=== PATIENT | male | born 1980 | race Caucasian/White ===

== ENCOUNTER 2016-11-26 14:35 | Emergency (ER) | payer SELFPAY ==
[~2016-11-26] VITALS: Ht 175.3 cm; Wt 79.4 kg
[2016-11-26] MEDS ORDERED: AMOX-358 PO (14:53)
[2016-11-26] MEDS ORDERED: LIDO30JE10 MM (14:53)
[2016-11-26] MEDS ORDERED: HYDR-757 PO (14:53)
--- NOTE | 2016-11-26 14:53 | ED EENT ---
History of Present Illness General Chief Complaint: Dental Problems/Pain Stated Complaint: BROKEN TOOTH/PAIN Source: patient Exam Limitations: no limitations History of Present Illness Time seen by provider: 14:49 Initial Comments To ER with a broken right lower molar. States that he cracked several weeks ago but finally broke off this morning. He notices some swelling. No fevers or chills. He resides in [facility] and states that he will have a dentist remove the tooth. Timing/Duration: gradual Severity: moderate Location: dental Associated Symptoms: facial pain/swelling Review of Systems Constitutional: see HPI Eyes: No Symptoms Reported Ears: No Symptoms Reported Nose: no symptoms reported Mouth: see HPI Throat: no symptoms reported Respiratory: no symptoms reported Cardiovascular: no symptoms reported Musculoskeletal: no symptoms reported Past Qaykark-Gasffo-Kvtpsp Hx Patient Social History Alcohol Use: Denies Use Recreational Drug Use: No Smoking Status: Current Everyday Smoker Type Used: Cigarettes Recent Foreign Travel: No Contact w/Someone Who Travel: No Physical Exam General Appearance: WD/WN, no apparent distress Eyes: bilateral eye EOMI, bilateral eye PERRL, bilateral eye normal inspection Ears: bilateral ear TM normal, bilateral ear auricle normal, bilateral ear canal normal Mouth/Throat: normal mouth inspection, pharynx normal, other (dental fracture with some swelling to the lingual surface of the right lower molar. I recommended local anesthesia, incision and drainage but the patient declines stating that he will follow up in [facility] to have this removed.) Neck: non-tender Respiratory: normal breath sounds, no respiratory distress, no accessory muscle use Gastrointestinal: normal bowel sounds, non tender, soft Neurologic/Psychiatric: alert, normal mood/affect, oriented x 3 Skin: normal color, warm/dry Departure Impression Impression: Primary Impression: Dental abscess Disposition: 01 HOME, SELF-CARE Condition: Stable Departure-Patient Inst. Decision time for Depature: 14:51 Referrals: NO,LOCAL PHYSICIAN (PCP/Family) Primary Care Physician Patient Instructions: Dental Pain (DC) Add. Discharge Instructions: 1. You must follow-up with your dentist this week 2. Antibiotics as directed 3. Return to ER for any worsening All discharge instructions reviewed with patient and/or family. Voiced understanding. Scripts Lidocaine HCl (Lidocaine HCl) 30 Ml Jel..ml. 1 ML MM TID Y for PAIN-MODERATE, #1 EACH Prov: TALIB ROJAS APRN 11/26/16 Hydrocodone/Acetaminophen (Callery 5-325 Tablet) 1 Each Tablet 1 EACH PO Q6H Y for PAIN-MODERATE, #10 TAB Do not fill unless Augmentin is also filled. Prov: TALIB ROJAS APRN 11/26/16 Amoxicillin/Potassium Clav (Augmentin 875-125 Tablet) 1 Each Tablet 1 EACH PO BID, #14 TAB Prov: TALIB ROJAS APRN 11/26/16 TALIB ROJAS APRN Nov 26, 2016 14:53
[2016-11-26 14:57] VITALS: BP 158/98
== END 2016-11-26 14:56 | disposition home or self-care (01) ==
LOC: EDUNIT# 14:35 → ER 14:39
DX: K04.7 Periapical abscess without sinus (principal); F17.210 Nicotine dependence, cigarettes, uncomplicated
CPT/HCPCS: 99282